=== PATIENT | male | born 1970 | race Caucasian/White ===

== ENCOUNTER → 2021-06-02 | Outpatient (CLI) | payer OTHER ==
--- NOTE | 2021-06-02 19:16 | Diagnostic Imaging Report ---
INDICATION: Family history of brain aneurysm MR angiography of the head obtained without IV contrast, with [id number] images and 3-D reconstructions. There is no previous study for comparison. The distal internal carotid arteries, anterior cerebral arteries, and middle cerebral arteries are patent and appear unremarkable. The distal vertebral arteries and basilar artery and posterior cerebral arteries are unremarkable. There is a " origin" of the left posterior cerebral artery. IMPRESSION: Unremarkable MR angiography of the head, no MR evidence of aneurysm. Dictated by: Dictated on workstation # [id number]
== END ==
LOC: RAD 11:00
PROVIDERS: ATTEND Family Medicine
DX: Z82.49 Family history of ischemic heart disease and other diseases of the circulatory system (principal)
CPT/HCPCS: 70544

== ENCOUNTER 2023-03-23 17:12 | Emergency (ER) | payer OTHER ==
[~2023-03-23] VITALS: Ht 195.6 cm; Wt 102.3 kg
[2023-03-23] MEDS ORDERED: NS IV 1000 ML 1,000 ML IV STA (17:24)
--- NOTE | 2023-03-23 17:28 | ED Neurological Problem ---
General Chief Complaint: Cardiac/General Problems Stated Complaint: L HAND NUMBNESS,HEADAHCE,NAUSEA Source: patient, family, RN/MD Exam Limitations: no limitations History of Present Illness Date Seen by Provider: March 23, 2023 Time Seen by Provider: 17:13 Initial Comments 52-year-old male with past medical history of hypertension coming in as a referral from [facility] due to headache and left hand tingling. Headache started slowly around 6 AM this morning, now it has been worsening to where it is one of the worst in his life, but not the worst. He states it was slow in onset and was not thunderclap in nature. Denies any neck stiffness, fever, weakness, true numbness, vision changes, or any other concerns. Reportedly his systolic blood pressure was around 180 at [facility]. He has taken all of his blood pressure medicines today. He denies any personal history of aneurysm in his brain, had a CTA of his head 2 years ago which was negative for aneurysm. He has his mother and sibling which both had brain aneurysms which bled eventually. Allergies and Home Medications Allergies Coded Allergies: Penicillins (Verified Allergy, Unknown, 03/23/23) Patient Home Medication List Home Medication List Reviewed: Yes Review of Systems Review of Systems Constitutional: No fever Eyes: No Symptoms Reported Ears, Nose, Mouth, Throat: no symptoms reported Respiratory: no symptoms reported Cardiovascular: no symptoms reported Gastrointestinal: no symptoms reported Genitourinary: no symptoms reported Musculoskeletal: no symptoms reported Skin: no symptoms reported Psychiatric/Neurological: See HPI Endocrine: No Symptoms Reported Past [id number] Hx Patient Social History Tobacco Use?: No Use of E-Cig and/or Vaping dev: No Substance use?: No Alcohol Use?: No Physical Exam Vital Signs Vital Signs - First Documented 03/23/23 17:15 Temp 37.5 Pulse 94 Resp 16 B/P (MAP) 146/98 (114) Pulse Ox 97 O2 Delivery Room Air Capillary Refill : Height, Weight, BMI Height: '" Weight: lbs. oz. kg; BMI Method: General Appearance: WD/WN, no apparent distress HEENT: PERRL/EOMI, normal ENT inspection, pharynx normal Neck: non-tender, full range of motion, supple, normal inspection, other (No meningismus) Respiratory: chest non-tender, lungs clear, normal breath sounds, no respiratory distress, no accessory muscle use Cardiovascular: regular rate, rhythm, no edema, no murmur Gastrointestinal: normal bowel sounds, non tender, soft; No distended, No guarding, No rebound Back: normal inspection, no CVA tenderness, no vertebral tenderness Extremities: normal range of motion, non-tender, normal inspection, no pedal edema, no calf tenderness, normal capillary refill 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, no motor/sensory deficits, alert, normal mood/affect, oriented x 3 Crainal Nerves: normal hearing, normal speech, PERRL, other (Normal visual werner and visual acuity) Coordination/Gait: normal finger to nose, normal gait Motor/Sensory: no motor deficit, no sensory deficit, no pronator drift Skin: normal color, warm/dry Stroke Onset of Symptoms Date of Onset of Symptoms: March 23, 2023 Time of Symptom Onset: 06:00 Onset of Symptoms: Yes NIH Stroke Scale Assessment Select: Initial Level of Consciousness: 0=Alert (0), Level of Consciousness-Questions: 0=Answers both month/age (0), LOC Commands: 0=Performs both tasks (0), Gaze: Normal (0), Visual Werner: 0=No visual loss (0), Facial Movement (Facial Paresis): 0=Normal symmetrical mnt (0), Motor Function-Arms Right: 0=No drift (0), Motor Function-Arms Left: 0=No drift (0), Motor Function-Legs Right: 0=No drift (0), Motor Function-Legs Left: 0=No drift (0), Limb Ataxia: 0=Absent (0), Sensory: 0=Normal:no loss (0), Best Language: 0=No aphasia (0), Dysarthria: 0=Normal (0), Extinction & Inattention: 0=No abnormality (0), Total: 0 Stroke Thrombolytic Exclusion Improving Symptoms: Yes TPA Contraindication: Yes IV - TPa Received IV - TPa Procedure Performed?: No Progress/Results/Core Measures Results/Orders Lab Results Laboratory Tests Test 03/23/23 17:28 Range/Units White Blood Count 8.8 4.3-11.0 10^3/uL Red Blood Count 4.78 4.30-5.52 10^6/uL Hemoglobin 15.0 13.3-17.7 g/dL Hematocrit 42 40-54 % Mean Corpuscular Volume 89 80-99 fL Mean Corpuscular Hemoglobin 31 25-34 pg Mean Corpuscular Hemoglobin Concent 36 32-36 g/dL Red Cell Distribution Width 11.5 10.0-14.5 % Platelet Count 241 130-400 10^3/uL Mean Platelet Volume 9.1 9.0-12.2 fL Immature Granulocyte % (Auto) 0 % Neutrophils (%) (Auto) 82 H 42-75 % Lymphocytes (%) (Auto) 12 12-44 % Monocytes (%) (Auto) 5 0-12 % Eosinophils (%) (Auto) 1 0-10 % Basophils (%) (Auto) 1 0-10 % Neutrophils # (Auto) 7.2 1.8-7.8 10^3/uL Lymphocytes # (Auto) 1.0 1.0-4.0 10^3/uL Monocytes # (Auto) 0.4 0.0-1.0 10^3/uL Eosinophils # (Auto) 0.1 0.0-0.3 10^3/uL Basophils # (Auto) 0.1 0.0-0.1 10^3/uL Immature Granulocyte # (Auto) 0.0 0.0-0.1 10^3/uL Prothrombin Time 12.4 12.2-14.7 SEC INR Comment 0.9 0.8-1.4 Activated Partial Thromboplast Time 26 24-35 SEC Sodium Level 138 135-145 MMOL/L Potassium Level 3.9 3.6-5.0 MMOL/L Chloride Level 100 98-107 MMOL/L Carbon Dioxide Level 24 21-32 MMOL/L Anion Gap 14 5-14 MMOL/L Blood Urea Nitrogen 13 7-18 MG/DL Creatinine 0.71 0.60-1.30 MG/DL Estimat Glomerular Filtration Rate 111 BUN/Creatinine Ratio 18 Glucose Level 105 70-105 MG/DL Calcium Level 9.4 8.5-10.1 MG/DL Corrected Calcium 9.1 8.5-10.1 MG/DL Total Bilirubin 0.5 0.1-1.0 MG/DL Aspartate Amino Transf (AST/SGOT) 15 5-34 U/L Alanine Aminotransferase (ALT/SGPT) 19 0-55 U/L Alkaline Phosphatase 46 40-136 U/L Total Protein 6.8 6.4-8.2 GM/DL Albumin 4.4 3.2-4.5 GM/DL My Orders Orders - ANGEL HUDSON MD Ct Angio Head/Neck (03/23/23 17:24) Cbc With Automated Diff (03/23/23 17:24) Comprehensive Metabolic Panel (03/23/23 17:24) Protime With Inr (03/23/23 17:24) Partial Thromboplastin Time (03/23/23 17:24) Prochlorperazine Injection (Compazine In (03/23/23 17:30) Diphenhydramine Injection (Benadryl Inje (03/23/23 17:30) Ns Iv 1000 Ml (Sodium Chloride 0.9%) (03/23/23 17:24) Iohexol Injection (Omnipaque 350 Mg/Ml 1 (03/23/23 17:45) Received Contrast (Hold Metformin- Contr (03/23/23 17:45) Ns (Ivpb) (Sodium Chloride 0.9% Ivpb Bag (03/23/23 17:45) Ketorolac Injection (Toradol Injection) (03/23/23 18:45) Acetaminophen Tablet (Tylenol Tablet) (03/23/23 18:45) Medications Given in ED Current Medications Medications Dose Ordered Sig/Madi Route Start Time Stop Time Status Last Admin Dose Admin Diphenhydramine HCl 25 mg ONCE ONCE IVP 03/23/23 17:30 03/23/23 17:31 DC 03/23/23 17:34 25 MG Iohexol 100 ml ONCE ONCE IV 03/23/23 17:45 03/23/23 17:46 DC 03/23/23 18:10 75 ML Prochlorperazine Edisylate 10 mg ONCE ONCE IV 03/23/23 17:30 03/23/23 17:31 DC 03/23/23 17:34 10 MG Sodium Chloride 100 ml ONCE ONCE IV 03/23/23 17:45 03/23/23 17:46 DC 03/23/23 18:10 100 ML Vital Signs/I&O 03/23/23 17:15 Temp 37.5 Pulse 94 Resp 16 B/P (MAP) 146/98 (114) Pulse Ox 97 O2 Delivery Room Air Progress Progress Note : Progress Note 52-year-old male with above history coming in due to headache. ABCs were intact and vitals were stable on presentation. NIH is 0 and he is not having any hand numbness here. He is stating he had a little tingling earlier which is gone. The headache was slow in onset over the course of the day and relatively speaking would be lower risk for a subarachnoid hemorrhage. He has no meningismus or fever making meningitis unlikely. Given the family history of subarachnoid hemorrhage with aneurysms however, CTA head and neck was obtained and on my interpretation there is no acute bleed. Negative for aneurysm or other abnormalities per the radiologist. An IV was placed and he was given a bolus of IV fluids as well as Compazine and Benadryl. Labs significant for normal white blood cell count, normal creatinine, normal coagulation studies. Headache improved, but still present. On reassessment gave him IV Toradol and oral Tylenol. Patient is very well-appearing. I believe he stable for discharge with outpatient follow-up. He was sent home with strict return precautions. Diagnostic Imaging Diagonstic Imaging: CT (CTA head and neck) Comments NAME: PETE COLLINS [facility] REC#: [id number] PT STATUS: REG ER : 1970 PHYSICIAN: ANGEL HUDSON MD ADMIT DATE: 03/23/23/ER FS Draft Date of Exam:03/23/23 CT ANGIO HEAD/NECK PROCEDURE: CT angiography of the head and CT angiography of the neck with and without contrast. TECHNIQUE: Contiguous noncontrast images were obtained from the skull base through the vertex. After intravenous contrast administration, helical CT angiography of the neck was performed. Source data was reformatted into 3D MIP projections. Delayed post contrast acquisition was also obtained. Auto Exposure Controls were utilized during the CT exam to meet ALARA standards for radiation dose reduction. INDICATION: Worst headache of life, pain, family history of aneurysms. COMPARISON: 06/02/2021 FINDINGS: No intracranial hemorrhage. No intracranial mass, mass effect, midline shift, herniation, hydrocephalus, or extra-axial fluid collection. No CT evidence of an acute ischemic infarction. The orbits are unremarkable. The paranasal sinuses are clear. The calvarium and extracalvarial soft tissues are unremarkable. No enhancing intracranial mass lesion. No suspicious dural enhancement. The muscles of mastication are unremarkable. No significant fat stranding within the parapharyngeal fat. The salivary glands are unremarkable. No significant adenopathy within the neck. The airway is patent. The thyroid gland is unremarkable. No apical pneumothorax. A three-vessel aortic arch is present. The large arterial structures are not optimally evaluated secondary to contrast bolus timing as the majority of the dense contrast is noted within the venous system as opposed to the arterial system. Within the limits of the exam, no occlusion, high-grade hemodynamically significant stenosis, aneurysm, pseudoaneurysm, or dissection involving the large arterial structures of the head and neck. Probable origin of the left posterior cerebral artery. The large dural venous sinuses appear patent. No acute osseous abnormality. IMPRESSION: No acute intracranial abnormality. Large arterial structures within the head and neck are grossly unremarkable within the limits of the exam. Dictated on workstation # [id number] Dict: 03/23/231820 Trans: 03/23/231830 [facility] [id number] Interpreted by: SHAAN MCGARRY MD Electronically signed by: Departure Impression Primary Impression: Atypical migraine Disposition: HOME, SELF-CARE Condition: Stable Departure-Patient Inst. Decision time for Depature: 19:50 Referrals: J LUIS DENNISON MD (PCP/Family) Primary Care Physician Patient Instructions: Headache, Adult (DC) Add. Discharge Instructions: There is no visible aneurysm in your brain and no bleeding. This likely is just a very significant headache that you have got today. If these become more persistent, your doctor may need to prescribe medications for headaches. Be sure to be drinking plenty of fluids. You can take ibuprofen and/or Tylenol for the headache in the future. Work/School Note: Work Release Form Date Seen in the Emergency Department: March 23, 2023 Return to Work: March 24, 2023 Restrictions: No Restrictions ANGEL HUDSON MD March 23, 2023 17:28
[2023-03-23] MEDS ORDERED: PROCHLORPERAZINE 10 MG/2ML INJ (COMPAZINE) IV ONE (17:30)
[2023-03-23] MEDS ORDERED: diphenhydrAMINE 50 MG/ML INJ (BENADRYL) IVP ONE (17:30)
[2023-03-23 17:33] LABS: BASOPHILS # (AUTO) 0.1 10^3/uL (0.0-0.1); BASOPHILS % (AUTO) 1 % (0-10); EOSINOPHILS # (AUTO) 0.1 10^3/uL (0.0-0.3); EOSINOPHILS % (AUTO) 1 % (0-10); HEMATOCRIT 42 % (40-54); LYMPHOCYTES % (AUTO) 12 % (12-44); MEAN CORPUSCULAR HEMOGLOBIN 31 pg (25-34); MEAN CORPUSCULAR HGB CONC 36 g/dL (32-36); MEAN CORPUSCULAR VOLUME 89 fL (80-99); MEAN PLATELET VOLUME 9.1 fL (9.0-12.2); MONOCYTES # (AUTO) 0.4 10^3/uL (0.0-1.0); MONOCYTES % (AUTO) 5 % (0-12); NEUTROPHILS # (AUTO) 7.2 10^3/uL (1.8-7.8); NEUTROPHILS % (AUTO) 82 % (42-75); PLATELET COUNT 241 10^3/uL (130-400); WHITE BLOOD COUNT 8.8 10^3/uL (4.3-11.0)
[2023-03-23] MEDS ORDERED: IOHEXOL 350 MG/ML 100 ML (OMNIPAQUE 350) VIAL IV ONE (17:45)
[2023-03-23] MEDS ORDERED: NS 100 ML (IVPB) BAG IV ONE (17:45)
[2023-03-23] MEDS ORDERED: HOLD METFORMIN - RECEIVED CONTRAST 20 ML VIAL IV SCH (17:45)
[2023-03-23 17:49] LABS: INR 0.9 (0.8-1.4); PROTHROMBIN TIME PATIENT 12.4 SEC (12.2-14.7)
[2023-03-23 17:55] LABS: BILIRUBIN,TOTAL 0.5 MG/DL (0.1-1.0); CALCIUM 9.4 MG/DL (8.5-10.1); CREATININE SERUM 0.71 MG/DL (0.60-1.30); POTASSIUM 3.9 MMOL/L (3.6-5.0); TOTAL PROTEIN 6.8 GM/DL (6.4-8.2)
[2023-03-23 17:56] LABS: ALBUMIN 4.4 GM/DL (3.2-4.5)
--- NOTE | 2023-03-23 18:31 | Diagnostic Imaging Report ---
PROCEDURE: CT angiography of the head and CT angiography of the neck with and without contrast. TECHNIQUE: Contiguous noncontrast images were obtained from the skull base through the vertex. After intravenous contrast administration, helical CT angiography of the neck was performed. Source data was reformatted into 3D MIP projections. Delayed post contrast acquisition was also obtained. Auto Exposure Controls were utilized during the CT exam to meet ALARA standards for radiation dose reduction. INDICATION: Worst headache of life, pain, family history of aneurysms. COMPARISON: 06/02/2021 FINDINGS: No intracranial hemorrhage. No intracranial mass, mass effect, midline shift, herniation, hydrocephalus, or extra-axial fluid collection. No CT evidence of an acute ischemic infarction. The orbits are unremarkable. The paranasal sinuses are clear. The calvarium and extracalvarial soft tissues are unremarkable. No enhancing intracranial mass lesion. No suspicious dural enhancement. The muscles of mastication are unremarkable. No significant fat stranding within the parapharyngeal fat. The salivary glands are unremarkable. No significant adenopathy within the neck. The airway is patent. The thyroid gland is unremarkable. No apical pneumothorax. A three-vessel aortic arch is present. The large arterial structures are not optimally evaluated secondary to contrast bolus timing as the majority of the dense contrast is noted within the venous system as opposed to the arterial system. Within the limits of the exam, no occlusion, high-grade hemodynamically significant stenosis, aneurysm, pseudoaneurysm, or dissection involving the large arterial structures of the head and neck. Probable origin of the left posterior cerebral artery. The large dural venous sinuses appear patent. No acute osseous abnormality. IMPRESSION: No acute intracranial abnormality. Large arterial structures within the head and neck are grossly unremarkable within the limits of the exam. Dictated by: Dictated on workstation # [id number]
[2023-03-23] MEDS ORDERED: ACETAMINOPHEN 500 MG TAB (TYLENOL) PO ONE (18:45)
[2023-03-23] MEDS ORDERED: KETOROLAC 15 MG/ML VIAL IVP ONE (18:45)
[2023-03-23 18:58] VITALS: BP 142/88
== END 2023-03-23 19:00 | disposition home or self-care (01) ==
LOC: EDUNIT# 17:12 → ER FS 17:13
DX: G43.809 Other migraine, not intractable, without status migrainosus (principal); Z28.310 Unvaccinated for COVID-19
CPT/HCPCS: 36415; 70496; 70498; 80053; 85025; 85610; 85730

== ENCOUNTER → 2023-03-26 | Outpatient (CLI) | payer OTHER ==
[~2023-03-26] MED LIST: GADOTERATE 0.5 MMOL/ML (CLARISCAN) 20 ML VIAL IV ONE
--- NOTE | 2023-03-26 14:41 | Diagnostic Imaging Report ---
PROCEDURE: MR imaging of the brain with and without contrast. TECHNIQUE: Multiplanar, multisequence MR imaging of the brain was performed with and without contrast. INDICATION: Headache COMPARISON: CTA of the head and neck on 03/23/2023. FINDINGS: No acute infarct. No acute or chronic hemorrhage. No intracranial mass or fluid collection. No intracranial mass or fluid collection. No midline shift or mass effect. No abnormal enhancement. The paranasal sinuses and mastoids are clear. The globes and orbits are normal. The visualized cervical spine is normal. The sella is normal. No Chiari malformation. IMPRESSION: No acute infarct or hemorrhage. No mass or abnormal enhancement. No Chiari malformation. Dictated by: Dictated on workstation # [id number]
== END ==
LOC: RAD 13:41
PROVIDERS: ATTEND Nurse Practitioner Family
DX: R29.810 Facial weakness (principal); R51.9 Headache, unspecified
CPT/HCPCS: 70553